=== PATIENT | male | born 1975 | race Caucasian/White ===

== ENCOUNTER 2017-10-06 11:11 | Emergency (ER) | payer BC ==
[~2017-10-06] VITALS: Ht 185.4 cm; Wt 120.1 kg
[2017-10-06] VITALS (7 sets, daily range): BP systolic 168–192; BP diastolic 88–103; PULSE 87–119; RESP 18–20; TEMP 98; O2SAT 95–98
[2017-10-06] MEDS ORDERED: ALPR.25 PO (11:31)
--- NOTE | 2017-10-06 11:40 | PD ---
HPI Chief Complaint: Chest Pain Time Seen by Provider: 11:26 Travel History International Travel<30 days: No Contact w/Intl Traveler<30days: No Traveled to known affect area: No History of Present Illness HPI 42yo M with PMH of HTN and anxiety presents to the ED with c/o left sided chest pain for 1 week. Said it is pressure like, intermittent and lasts for a few hours at a time. Associated with some nausea but not really sob. Denies any fever, cough, hemoptysis, history of DVT/PE, vomiting, abdominal pain, focal weakness or numbness. Said he has been feeling lightheaded and dizzy for 1 week as well as generalized weakness. Pt has not had any cardiac stress test in a few years. Last time, he had similar chest pain, he had negative work up and was told it was probably his anxiety. PFSH Social History Tobacco Use: No Allergies-Medications (Allergen,Severity, Reaction): Coded Allergies: No Known Allergies (Verified Allergy, Unknown, 10/06/17) Reported Meds & Prescriptions Reported Meds & Active Scripts Active Amlodipine (Amlodipine Besylate) 5 Mg Tab 5 Mg PO DAILY Reported Xanax (Alprazolam) 0.25 Mg Tab 0.25 Mg PO Q4H PRN Review of Systems Except as stated in HPI: all other systems reviewed are Neg Physical Exam Narrative GENERAL: 42yo M in mild distress. SKIN: Focused skin assessment warm/dry. HEAD: Atraumatic. Normocephalic. EYES: Pupils equal and round. No scleral icterus. No injection or drainage. ENT: No nasal bleeding or discharge. Mucous membranes pink and moist. NECK: Trachea midline. No JVD. CARDIOVASCULAR: Regular rate and rhythm. No murmur appreciated. RESPIRATORY: No accessory muscle use. Clear to auscultation. Breath sounds equal bilaterally. GASTROINTESTINAL: Abdomen soft, non-tender, nondistended. MUSCULOSKELETAL: No obvious deformities. No clubbing. No cyanosis. No edema. NEUROLOGICAL: Awake and alert. No obvious cranial nerve deficits. Motor grossly within normal limits in all extremities. Sensation equal in all extremities. Normal speech. PSYCHIATRIC: Anxious. Data Data Last Documented VS Vital Signs Date Time Temp Pulse Resp B/P (MAP) Pulse Ox O2 Delivery O2 Flow Rate FiO2 10/06/17 14:38 95 18 180/103 (128) 98 10/06/17 14:06 Room Air 10/06/17 11:20 98.0 Orders Orders Basic Metabolic Panel (Bmp) (10/06/17 11:36) Complete Blood Count With Diff (10/06/17 11:36) Magnesium (Mg) (10/06/17 11:36) Prothrombin Time / Inr (Pt) (10/06/17 11:36) Act Partial Throm Time (Ptt) (10/06/17 11:36) Troponin I (10/06/17 11:36) Chest, Single Ap (10/06/17 11:36) Hydralazine Inj (Apresoline Inj) (10/06/17 11:45) Aspirin (Aspirin) (10/06/17 11:45) Lorazepam Inj (Ativan Inj) (10/06/17 11:45) Thyroid Stimulating Hormone (10/06/17 11:25) Nitroglycerin Sl (Nitrostat Sl) (10/06/17 12:45) Acetaminophen (Tylenol) (10/06/17 13:15) Ct Pulmonary Angiogram (10/06/17 ) Sodium Chlorid 0.9% 500 Ml Inj (Ns 500 M (10/06/17 13:15) Iohexol 350 Inj (Omnipaque 350 Inj) (10/06/17 13:43) Ed Discharge Order (10/06/17 14:18) Electrocardiogram (10/06/17 11:22) Labs Laboratory Tests Test 10/06/17 11:25 White Blood Count 7.4 TH/MM3 Red Blood Count 4.92 MIL/MM3 Hemoglobin 16.0 GM/DL Hematocrit 46.1 % Mean Corpuscular Volume 93.8 FL Mean Corpuscular Hemoglobin 32.5 PG Mean Corpuscular Hemoglobin Concent 34.6 % Red Cell Distribution Width 12.4 % Platelet Count 259 TH/MM3 Mean Platelet Volume 7.4 FL Neutrophils (%) (Auto) 51.6 % Lymphocytes (%) (Auto) 37.3 % Monocytes (%) (Auto) 7.9 % Eosinophils (%) (Auto) 2.3 % Basophils (%) (Auto) 0.9 % Neutrophils # (Auto) 3.7 TH/MM3 Lymphocytes # (Auto) 2.8 TH/MM3 Monocytes # (Auto) 0.6 TH/MM3 Eosinophils # (Auto) 0.2 TH/MM3 Basophils # (Auto) 0.1 TH/MM3 CBC Comment DIFF FINAL Differential Comment Prothrombin Time 10.5 SEC Prothromb Time International Ratio 1.0 RATIO Activated Partial Thromboplast Time 25.2 SEC Blood Urea Nitrogen 10 MG/DL Creatinine 1.10 MG/DL Random Glucose 125 MG/DL Calcium Level 9.1 MG/DL Magnesium Level 2.0 MG/DL Sodium Level 139 MEQ/L Potassium Level 3.9 MEQ/L Chloride Level 103 MEQ/L Carbon Dioxide Level 28.8 MEQ/L Anion Gap 7 MEQ/L Estimat Glomerular Filtration Rate 73 ML/MIN Troponin I LESS THAN 0.02 NG/ML Thyroid Stimulating Hormone 3rd Gen 1.510 uIU/ML MDM Medical Decision Making Medical Screen Exam Complete: Yes Emergency Medical Condition: Yes Interpretation(s) EKG: NSR 80bpm. LAD. No ST segment elevation or depression. TWI III. Differential Diagnosis ACS vs. anxiety vs. electrolyte abnormality Narrative Course 42yo M with atypical chest pain. Pt flew down from [place] 2 days ago but had the chest pain before coming down. Pt has history of anxiety but said this feels different. He does appear very anxious so ativan 1mg given. Pt reevaluated at bedside and said he feels a little better but still with chest pain. Will give aspirin, sublingual nitro. BP initially 192/103 and after hydralazine was only slightly improved at 187/103. Will reevaluate after nitro. Pt said he had stress test 4-5 years ago. Labs reviewed, no leukocytosis. H/H normal. Troponin negative. TSH normal. Pt said he started having headache after nitro so given acetaminophen. Pt reevaluated at bedside and HR was elevated in the 110s to 120s. Still think chest pain is likely anxiety but with recent travel and tachycardia, cannot r/o PE. CT angio performed and showed no PE. Pt reevaluated at bedside after NS IVF and feels better. HR has also improved. Pt is flying back to [place] tomorrow so he said he will follow up with his doctor back home. Pt offered chest pain center to r/o ACS but refused it. Return precautions given. Diagnosis Primary Impression: Chest pain Qualified Codes: R07.9 - Chest pain, unspecified Additional Impression: Elevated blood pressure reading Patient Instructions: General Instructions Departure Forms: Tests/Procedures Additional Instructions: Please follow up with your doctor back in [place] as soon as possible. Return to the ED if you change your mind or symptoms worsen. Med/Other Pt SpecificInfo: Prescription(s) given Scripts Amlodipine (Amlodipine) 5 Mg Tab 5 MG PO DAILY for Blood Pressure Management, #15 TAB 0 Refills Prov: Yamila Marcano DO 10/06/17 Disposition: 01 DISCHARGE HOME Condition: Stable Yamila Marcano DO Oct 06, 2017 11:40
[2017-10-06] MEDS ORDERED: LORazepam 2 MG/ML VIAL IV PUSH ONE (11:45)
[2017-10-06] MEDS ORDERED: hydrALAZINE HCL 20 MG/ML VIAL IV PUSH ONE (11:45)
[2017-10-06] MEDS ORDERED: ASPIRIN 325 MG TAB PO ONE (11:45)
[2017-10-06 12:17] LABS: CHLORIDE 103 MEQ/L (98-107); SODIUM (NA) 139 MEQ/L (136-145)
[2017-10-06 12:19] LABS: BICARBONATE 28.8 MEQ/L (21.0-32.0); BLOOD UREA NITROGEN 10 MG/DL (7-18); CALCIUM 9.1 MG/DL (8.5-10.1); GLUCOSE,RANDOM 125 MG/DL (74-106)
[2017-10-06 12:20] LABS: PROTHROMBIN TIME - PATIENT 10.5 SEC (9.8-11.6)
[2017-10-06 12:23] LABS: GLOMERULAR FILTRATION RATE 73 ML/MIN (>89)
[2017-10-06 12:24] LABS: AUTOMATED NEUTROPHIL # 3.7 TH/MM3 (1.8-7.7); BASOPHIL # 0.1 TH/MM3 (0-0.2); BASOPHIL % 0.9 % (0.0-2.0); EOSINOPHIL # 0.2 TH/MM3 (0-0.4); EOSINOPHIL % 2.3 % (0.0-4.0); HEMATOCRIT 46.1 % (39.0-51.0); LYMPH % 37.3 % (9.0-44.0); LYMPHOCYTE # 2.8 TH/MM3 (1.0-4.8); MEAN CELL VOLUME 93.8 FL (80.0-100.0); MEAN CORPUSCULAR HEMOGLOBIN 32.5 PG (27.0-34.0); MEAN CORPUSCULAR HGB CONC 34.6 % (32.0-36.0); MEAN PLATELET VOLUME 7.4 FL (7.0-11.0); MONO % 7.9 % (0.0-8.0); MONOCYTE # 0.6 TH/MM3 (0-0.9); NEUT % 51.6 % (16.0-70.0); PLATELET COUNT 259 TH/MM3 (150-450); RED BLOOD COUNT 4.92 MIL/MM3 (4.50-5.90); RED CELL DISTRIBUTION WIDTH 12.4 % (11.6-17.2); WHITE BLOOD COUNT 7.4 TH/MM3 (4.0-11.0)
[2017-10-06 12:28] LABS: TROPONIN I LESS THAN 0.02 NG/ML (0.02-0.05)
--- NOTE | 2017-10-06 12:40 | RADRPT ---
EXAM DATE/TIME: 10/06/2017 12:01 [facility] COMPARISON: No previous studies available for comparison. INDICATIONS : Intermittent chest pain x 1 week. MEDICAL HISTORY : Hypertension. SURGICAL HISTORY : None. ENCOUNTER: Initial ACUITY: 1 week PAIN SCORE: 6/10 LOCATION: Bilateral chest FINDINGS: A single view of the chest demonstrates the lungs to be symmetrically hypoinflated but clear. Azygous fissure in the right upper lobe, an anatomic variant. Accounting for low lung lines, heart size is n ormal. Osseous structures are intact with some degenerative spurring of the dorsal spine. CONCLUSION: 1. Hypoinflation with no acute infiltrate. 2. Azygous fissure, an anatomic variant. Nicholas Gross MD on October 06, 2017 at 12:31 Board Certified Radiologist. This report was verified electronically.
[2017-10-06] MEDS ORDERED: NITROGLYCERIN 0.4 MG SL 25 TABS/BTL SL ONE (12:45)
[2017-10-06] MEDS ORDERED: SODIUM CHLORID 0.9% 500 ML INJ 500 ML IV ONE (13:15)
[2017-10-06] MEDS ORDERED: ACETAMINOPHEN 325 MG TAB PO ONE (13:15)
[2017-10-06] MEDS ORDERED: IOHEXOL 350 MG/ML 10 ML VIAL (for RAD DIAG) IVCONTRAST ONE (13:43)
--- NOTE | 2017-10-06 13:53 | RADRPT ---
EXAM DATE/TIME: 10/06/2017 13:36 [facility] COMPARISON: No previous studies available for comparison. INDICATIONS : Left chest pain and general weakness x 1 week. IV CONTRAST: 75 cc Omnipaque 350 (iohexol) IV RADIATION DOSE: 21.47 CTDIvol (mGy) MEDICAL HISTORY : Hypertension. SURGICAL HISTORY : None. ENCOUNTER: Initial ACUITY: 1 week PAIN SCALE: 6/10 LOCATION: Left chest TECHNIQUE: Volumetric scanning of the chest was performed using a pulmonary embolism protocol MIP images were re constructed. Using automated exposure control and adjustment of the mA and/or kV according to patien t size, radiation dose was kept as low as reasonably achievable to obtain optimal diagnostic quality images. DICOM format image data is available electronically for review and comparison. Follow-up recommendations for detected pulmonary nodules are based at a minimum on nodule size and pa tient risk factors according to Fleischner Society Guidelines. FINDINGS: PULMONARY ARTERIES: No filling defects are seen in the pulmonary arteries through the segmental level. LUNGS: There is no consolidation or pneumothorax . No concerning pulmonary nodule is visualized. No acute p ulmonary infiltrates. Azygos lobe right upper lung. PLEURAE: There is no pleural thickening or pleural effusion. MEDIASTINUM: There is good visualization of the great vessels of the middle mediastinum. No evidence of mediastin al or hilar adenopathy/mass. MUSCULOSKELETAL: Within normal limits for patient age. MISCELLANEOUS: The visualized upper abdominal organs demonstrate no acute abnormality. Fatty infiltration of the eder er. CONCLUSION: 1. No evidence of PE. 2. No acute pulmonary infiltrates. Greg Warren MD on October 06, 2017 at 13:50 Board Certified Radiologist. This report was verified electronically.
[2017-10-06] MEDS ORDERED: AMLO5TAB2 PO (14:19)
--- NOTE | 2017-10-06 18:16 | EKG ---
Date Performed: 10/06/2017 Time Performed: 11:22:46 PTAGE: 42 years EKG: Sinus rhythm LEFT AXIS DEVIATION ABNORMAL ECG NO PREVIOUS TRACING DOCTOR: Nathan Lomax Interpretating Date/Time 10/06/2017 18:15:18
== END 2017-10-06 14:40 | disposition home or self-care (01) ==
LOC: PHED 11:11
DX: R07.9 Chest pain, unspecified (principal); I10 Essential (primary) hypertension; F41.9 Anxiety disorder, unspecified; R94.31 Abnormal electrocardiogram [ECG] [EKG]; Z79.899 Other long term (current) drug therapy
CPT/HCPCS: 71045; 71275; 80048; 83735; 84443; 84484; 85025; 85610; 85730; 93005; 96361; 96374; 96375; 99285; J0360; J2060; J7040; Q9967